=== PATIENT | female | born 1970 | race African-American/Black ===

== ENCOUNTER 2021-02-07 15:33 | Emergency (ER) | payer OTHER, SELFPAY ==
--- NOTE | 2021-02-07 15:37 | ED.URI ---
HPI - URI/Sore Throat General Chief Complaint: Upper Respiratory Infection Stated Complaint: sore throat Time Seen by Provider: 02/07/21 15:37 Source: patient and RN notes reviewed History of Present Illness HPI Narrative: Patient is a 50-year-old female who presents to urgent care with complaints of a sore throat that started last night. Patient denies of any known exposure to Covid or strep. States that she has had the Covid vaccine. Patient states that she gargled with peroxide and took ibuprofen for the pain. Denies of any fever, chills, nausea, vomiting, headache or other upper respiratory symptoms. No other acute complaints. No acute distress noted. Patient read the plan of care. Some parts of this dictation were generated by voice recognition software and may contain typographical and/or grammatical inaccuracies. Related Data Home Medications Medication Instructions Recorded Confirmed indapamide 2.5 mg PO DAILY 02/07/21 02/07/21 Allergies Allergy/AdvReac Type Severity Reaction Status Date / Time azithromycin Allergy Unknown Unknown Verified 02/07/21 15:41 Review of Systems Review of Systems: CONSTITUTIONAL: Denies fever, chills, or sweats. EYES: Denies visual changes, redness, or discharge. ENT: Denies rhinorrhea, congestion, otalgia. Reports of sore throat CARDIOVASCULAR: Denies chest pain, palpitations, or edema. RESPIRATORY: Denies cough or dyspnea. GASTROINTESTINAL: Denies abdominal pain, nausea, vomiting, or diarrhea. GENITOURINARY: Denies dysuria or hematuria. SKIN: Denies rash or itching. MUSCULOSKELETAL: Denies back pain, joint pain, or myalgia. NEUROLOGIC: Denies headache, numbness, or weakness. All other systems reviewed are negative, except as documented in HPI. [facility] Past Medical History Medical History Pityriasis in adult Surgical History Surgical History History of cholecystectomy (~2001) [place] teeth extracted Family History Family History Father Hypertension Social History Social History Smoking status: Never smoker Second hand tobacco smoke exposure: No Alcohol intake: current Alcohol use details: consumes 2 glasses of wine weekly Substance use: never Substance use type: does not use Gender identity (if verbalized by the patient): Female Comments At the time of my signature, I reviewed and agree with the nursing past medical, surgical, social, and family history. There is no relevant family history pertinent to the patient complaint. Exam Narrative: GENERAL: This is a well-nourished, well-developed patient, in no apparent distress. HEAD: normocephalic, atraumatic. EYES: PERRL. Sclera clear/white. Vision is grossly intact. EARS: External ears normal, auditory canals clear and without drainage, TMs normal without perforation. Hearing grossly intact. NOSE: External nose normal with no obvious nasal discharge, nares without redness, no rhinorrhea. THROAT: Mucous membranes moist, mild erythema noted to posterior pharynx with mild postnasal drainage NECK: Neck supple CARDIOVASCULAR: Regular rate and rhythm without murmurs, gallops, or rubs. RESPIRATORY: Clear to auscultation. Breath sounds equal bilaterally. No wheezes, rales, or rhonchi. SKIN: warm, intact with no suspicious lesions or rash, good texture and turgor. NEURO: awake, alert, and oriented to person, place and time. There were no obvious focal neurologic abnormalities. EXTREMITIES: No clubbing, cyanosis, or edema. Course Vital Signs Vital signs: Vital Signs Temperature 97.7 F 02/07/21 15:41 Pulse Rate 112 H 02/07/21 15:41 Respiratory Rate 16 02/07/21 15:41 Blood Pressure 133/94 H 02/07/21 15:41 Pulse Oximetry 100 02/07/21 15:41 Temperature 97.7 F
[2021-02-07 15:41] VITALS: BP 133/94; PULSE 112; RESP 16; TEMP 36.5; O2SAT 100
[2021-02-07 15:43] VITALS: BP 133/94; PULSE 112; RESP 16; TEMP 36.5; O2SAT 100
== END 2021-02-07 15:59 | disposition home or self-care (01) ==
PROVIDERS: Emergency Provider Nurse Practitioner Family
DX: J02.9 Acute pharyngitis, unspecified (principal)
CPT/HCPCS: 87081; 87880; 99213; G0463

== ENCOUNTER 2021-03-17 21:09 | Emergency (ER) | payer OTHER, SELFPAY ==
[2021-03-17 21:15] VITALS: BP 152/86; PULSE 112; RESP 20; TEMP 36.6; O2SAT 99
[2021-03-18 00:17] LABS: Add Urine Microscopic? YES; Appearance Urine Clear (Clear); Bacteria Urine Trace /hpf; Bilirubin Urine Negative (Negative); Blood Urine 2+ (Negative); Color Urine Yellow (Yellow); Glucose Urine UA Negative (Negative); Ketones Urine Trace mg/dL (Negative); Leukocyte Esterase Ur Negative LEU/UL (Negative); Mucus Urine Rare /lpf; Nitrate Urine Negative (Negative); Protein Urine Negative (Negative); RBC Urine 0-2 /hpf (0-2); Specific Grav Ur 1.008 (1.001-1.035); Squamous Epithelial Cell Urine Rare /hpf (Few); Urobilinogen Urine Negative mg/dL (<2.0)
--- NOTE | 2021-03-18 01:16 | PC.NURSE ---
Pt to INTAKE desk, states has been here for four hours and no longer wanting to wait. Pt out to car w/ .
== END 2021-03-18 01:40 | disposition left against medical advice (07) ==
PROVIDERS: Emergency Provider Emergency Medicine
DX: M54.9 Dorsalgia, unspecified (principal); Z53.21 Procedure and treatment not carried out due to patient leaving prior to being seen by health care provider
CPT/HCPCS: 81001; 99199

== ENCOUNTER 2021-03-19 11:06 | Emergency (ER) | payer OTHER, SELFPAY ==
[2021-03-19 11:19] VITALS: BP 119/79; PULSE 105; RESP 16; TEMP 36.2; O2SAT 100
--- NOTE | 2021-03-19 11:38 | ED.BACK ---
HPI - Back Pain/Injury General Chief Complaint: Back Pain/Injury Stated Complaint: Nerve Pain Source: patient and RN notes reviewed Limitations: no limitations History of Present Illness HPI Narrative: The patient medications, presents with back pain. Patient states she has 1/2-week history of right back pain that radiates posterior laterally down to but not on to and past the knee. Symptoms are mild, worse with activity, unrelieved with Flexeril given to her by nurse practitioner midweek; urinalysis at the time was noncontributory reportedly. No direct injury, no numbness/weakness, hematuria/frequency/urgency/dysuria, abdominal pain Related Data Home Medications Medication Instructions Recorded Confirmed indapamide 2.5 mg PO DAILY 02/07/21 03/19/21 Allergies Allergy/AdvReac Type Severity Reaction Status Date / Time azithromycin Allergy Unknown Unknown Verified 03/19/21 11:19 Review of Systems Review of Systems: General/Constitutional: No weight loss,fever Eyes: N0: Redness,discharge Ears/Nose/Throat: No: Epistaxis,ear discharge Respiratory: Denies: Hemoptysis Gastrointestinal: No Vomiting, Bleeding-rectal Skin: No Lumps, eruption Neurologic: No Focal Weakness,Sz Hematologic: Denies: Petechiae/Purpura Psychiatric: No: Suicida ideationl All Other Systems: Reviewed and Negative PMF Past Medical History Medical History Pityriasis in adult Surgical History Surgical History History of cholecystectomy (~2001) [place] teeth extracted Family History Family History Father Hypertension Social History Social History Smoking status: Never smoker Second hand tobacco smoke exposure: No Alcohol intake: current Alcohol use details: consumes 2 glasses of wine weekly Substance use: never Substance use type: does not use Gender identity (if verbalized by the patient): Female Comments At time of signature, agree with nursing past medical, surgical, social and family history. There is no relevant family history pertinent to the presenting complaint Exam Narrative: General Appearance: Well appearing, Conjunctiva clear Mouth/Throat: Normal appearing, Normal lips, Supple Respiratory: Airway patent Abdomen: Soft Musculoskeletal: Normal strength (no footdrop, 5/5 : EH L-FHL, gastroc-AT, no saddle weakness) Spine/Back: Paraspinal muscle tender (with mild decreased range of motion; right posterior superior iliac crest) Skin: Normal color, no sciatic notch tenderness Neurological: A&O x3, CN II-XII intact, Normal reflexes (symmetric, 2+ KJ, trace AJ) Psychiatric: Normal mood Course Vital Signs Vital signs: Vital Signs Temperature 97.1 F L 03/19/21 11:19 Pulse Rate 105 H 03/19/21 11:19 Respiratory Rate 16 03/19/21 11:19 Blood Pressure 119/79 03/19/21 11:19 Pulse Oximetry 100 03/19/21 11:19 Temperature 97.1 F L 03/19/21 11:19 Pulse Rate 105 H 03/19/21 11:19 Respiratory Rate 16 03/19/21 11:19 Blood Pressure 119/79 03/19/21 11:19 Pulse Oximetry 100 03/19/21 11:19 Discharge Plan Discharge Clinical Impression: Sciatica Patient Disposition: Home, Self-Care Condition: Stable Instructions: Sciatica (ED) Prescriptions: New prednisone 20 mg tablet 60 mg PO DAILY Qty: 9 RF: 0 acetaminophen-codeine 300-30 mg tablet 1 - 1.5 tablet PO HS PRN (Reason: pain) Qty: 10 RF: 0 tramadol 50 mg tablet 50 - 75 mg PO BID PRN (Reason: pain) Qty: 20 RF: 0 No Action indapamide 2.5 mg tablet 2.5 mg PO DAILY RF: 0 Follow-up/Referrals: Michela Harrison MD [Primary Care Provider] - Stand Alone Forms: Work/School Release IP
== END 2021-03-19 11:50 | disposition home or self-care (01) ==
PROVIDERS: Emergency Provider Emergency Medicine; PCP Family Medicine
DX: M54.30 Sciatica, unspecified side (principal)
CPT/HCPCS: 99213; G0463

== ENCOUNTER 2021-03-25 10:27 | Emergency (ER) | payer OTHER, SELFPAY ==
--- NOTE | ~2021-03-25 | XR_ITS ---
EXAMINATION: XR lumbar spine 2-3V DATE: 03/25/2021 11:29 INDICATION: Right-sided sciatica. TECHNIQUE: 3 views of lumbar spine were obtained. COMPARISON: None. FINDINGS: There is 8 degrees dextrocurvature of lumbar spine. Vertebral body heights and intervertebr al disc heights are normal. There are endplate osteophytes at multiple levels. There is multilevel mi ld facet joint osteoarthritis. There is an intrauterine device in expected position. Surgical clips i n the right upper quadrant are likely from cholecystectomy. IMPRESSION: 1. Mild lumbar spondylosis. Reviewed, dictated and finalized at location A. S TECHNICIAN IMPRESSION: 1. Mild lumbar spondylosis.
[2021-03-25 10:39] VITALS: BP 125/80; PULSE 118; RESP 16; TEMP 36.6; O2SAT 100
--- NOTE | 2021-03-25 11:19 | ED.BACK ---
HPI - Back Pain/Injury General Chief Complaint: Extremity Injury, Lower Stated Complaint: rt knee pain Time Seen by Provider: 03/25/21 11:10 Source: patient Mode of arrival: ambulatory Limitations: no limitations History of Present Illness HPI Narrative: Severino Flannery is a 50 yo female with a PMH of HTN who comes to [facility] stating that her right knee is now hurting. She was seen here on Sunday for sciatica and was given tramadol, Tylenol 3, and prednisone 60 mg daily which she finished last night she states that her knee is now hurting her when she stands up. She was also seen 3 days prior to last Sunday by [facility] who gave her an antibiotic and a muscle relaxant; because they thought she had a UTI but when her urine came back negative they told her to stop taking the antibiotic when asked about use of the muscle relaxant she says she has been using that in conjunction with the other medication that was prescribed to her on Sunday. She states she still has some tramadol left. Pain in back has improved. continues to deny dysuria Related Data Home Medications Medication Instructions Recorded Confirmed indapamide 2.5 mg PO DAILY 02/07/21 03/19/21 Allergies Allergy/AdvReac Type Severity Reaction Status Date / Time azithromycin Allergy Unknown Unknown Verified 03/19/21 11:19 Review of Systems Review of Systems: CONSTITUTIONAL: Denies fever, chills, sweats. EYES: Denies visual changes, redness, discharge. ENT: Denies rhinorrhea, congestion, sore throat, otalgia. CARDIOVASCULAR: Denies chest pain, palpitations, edema. RESPIRATORY: Denies dyspnea, wheezing, cough GASTROINTESTINAL: Denies abdominal pain, nausea, vomiting, diarrhea. GENITOURINARY: Denies dysuria, hematuria, abnormal discharge SKIN: Denies rash or itching. NEUROLOGIC: Denies numbness, or focal weakness. PSYCHIATRIC: Denies anxiety or depression. Right knee pain PMFSH Past Medical History Medical History Pityriasis in adult Primary hypertension Surgical History Surgical History History of cholecystectomy (~2001) [place] teeth extracted Family History Family History Father Hypertension Social History Social History Smoking status: Never smoker Second hand tobacco smoke exposure: No Alcohol intake: current Alcohol use details: consumes 2 glasses of wine weekly Substance use: never Substance use type: does not use Gender identity (if verbalized by the patient): Female Comments At time of signature, I agree with nursing past medical, surgical, social and family history. There is no relevant family history pertinent to the presenting complaint. Exam Narrative: GENERAL: This is a well-nourished, well-developed patient, in mild distress. HEAD: normocephalic, atraumatic. EYES: Sclera clear/white. Vision is grossly intact. EARS: External ears normal,. Hearing grossly intact. NOSE: External nose normal without nasal discharge, nares without redness, no rhinorrhea. THROAT: Mucous membranes moist, NECK: Neck supple, non-tender CARDIOVASCULAR: Regular rate and rhythm without murmurs, gallops, or rubs. RESPIRATORY: Clear to auscultation. Breath sounds equal bilaterally. No wheezes, rales, or rhonchi. GASTROINTESTINAL: Abdomen soft, SKIN: warm, intact with no suspicious lesions or rash, good texture and turgor. NEURO: awake, alert, and oriented to person, place and time. There were no obvious focal neurologic abnormalities. Steady gait EXTREMITIES: Normal range of motion. BACK: Nontender without deformity, he can stand on left leg but when moves in certain direction or puts pressure on the leg still complains of pain not only in the right knee but actually in the lateral part of the leg with some in the lower right
== END 2021-03-25 11:55 | disposition home or self-care (01) ==
PROVIDERS: Emergency Provider Nurse Practitioner
DX: M54.31 Sciatica, right side (principal)
CPT/HCPCS: 72100; 99213; G0463

== ENCOUNTER 2022-02-17 08:21 | Emergency (ER) | payer OTHER, SELFPAY ==
[2022-02-17 08:30] VITALS: BP 143/93; PULSE 106; RESP 16; TEMP 36.5; O2SAT 98
[2022-02-17 08:31] VITALS: BP 143/93; PULSE 106; RESP 16; TEMP 36.5; O2SAT 98
--- NOTE | 2022-02-17 08:39 | ED.FEMALEGU ---
HPI - Female Genitourinary General Chief complaint: Urogenital-Female Stated complaint: UTI SYMPTOMS Time Seen by Provider: 02/17/22 08:39 Source: patient Mode of arrival: ambulatory Limitations: no limitations History of Present Illness HPI Narrative: 51-year-old female presents with complaint dysuria at the end of urination, frequency and urgency for 2-3 days. Denies fever chills. No abdominal pain. No nausea vomiting diarrhea. No history of recurrent UTIs. Sexually active with . No changes to vaginal discharge. No concern for STI. All systems reviewed and negative except as noted above. Related Data Allergies Allergy/AdvReac Type Severity Reaction Status Date / Time azithromycin Allergy Unknown Unknown Verified 02/17/22 08:27 Review of Systems Review of Systems: CONSTITUTIONAL: Denies fever, chills, or sweats. EYES: Denies visual changes, redness, or discharge. ENT: Denies rhinorrhea, congestion, sore throat, or otalgia. CARDIOVASCULAR: Denies chest pain, palpitations, or edema. RESPIRATORY: Denies cough or dyspnea. GASTROINTESTINAL: Denies abdominal pain, nausea, vomiting, or diarrhea. GENITOURINARY: Denies dysuria, frequency, urgency. Denies dysuria. SKIN: Denies rash or itching. MUSCULOSKELETAL: Denies back pain, joint pain, or myalgia. NEUROLOGIC: Denies headache, numbness, or weakness. PSYCHIATRIC: Denies anxiety or depression. All other systems reviewed are negative, except as documented in HPI. [facility] Past Medical History Medical History Pityriasis in adult Primary hypertension Surgical History Surgical History History of cholecystectomy (~2001) [place] teeth extracted Family History Family History Father Hypertension Social History Social History Smoking status: Never smoker Second hand tobacco smoke exposure: No Alcohol intake: current Alcohol use details: consumes 2 glasses of wine weekly Substance use: never Substance use type: does not use Gender identity (if verbalized by the patient): Female Comments At time of signature, agree with nursing past medical, surgical, social and family history. There is no relevant family history pertinent to the presenting complaint. Exam Narrative: GENERAL: This is a well-nourished, well-developed patient, in no apparent distress. HEAD: normocephalic, atraumatic. EYES: PERRL. Sclera clear/white. Vision is grossly intact. EARS: External ears normal NOSE: External nose normal NECK: Neck supple, non-tender without lymphadenopathy, masses or thyromegaly. CARDIOVASCULAR: Regular rate and rhythm without murmurs, gallops, or rubs. RESPIRATORY: Clear to auscultation. Breath sounds equal bilaterally. No wheezes, rales, or rhonchi. SKIN: warm, Dry, intact with no suspicious lesions or rash, good texture and turgor. NEURO: awake, alert, and oriented to person, place and time. There were no obvious focal neurologic abnormalities. EXTREMITIES: No joint tenderness, effusion, or edema noted. BACK: No CVA tenderness. Course Course Level of Care: Express Care Visit Vital Signs Vital signs: Vital Signs Temperature 36.5 C 02/17/22 08:30 Pulse Rate 106 H 02/17/22 08:30 Respiratory Rate 16 02/17/22 08:30 Blood Pressure 143/93 H 02/17/22 08:30 Pulse Oximetry 98 02/17/22 08:30 Temperature 36.5 C 02/17/22 08:31 Pulse Rate 106 H 02/17/22 08:31 Respiratory Rate 16 02/17/22 08:31 Blood Pressure 143/93 H 02/17/22 08:31 Pulse Oximetry 98 02/17/22 08:31 Reviewed MDM - Female Genitourinary MDM Narrative Medical decision making narrative: Patient is aware of diagnosis, understands and agrees to treatment plan. Anticipatory guidance given. Patient agrees to follow-up as directed and is deanna
== END 2022-02-17 08:48 | disposition home or self-care (01) ==
PROVIDERS: Emergency Provider Nurse Practitioner Family; PCP Family Medicine
DX: N39.0 Urinary tract infection, site not specified (principal); I10 Essential (primary) hypertension
CPT/HCPCS: 81003; 87086; 99213; G0463